=== PATIENT | male | born 1950 | race Caucasian/White ===

== ENCOUNTER 2016-03-13 07:24 | Outpatient (CLI) | payer OTHER ==
--- NOTE | 2016-03-13 08:24 | DIAGNOSTIC IMAGING REPORT ---
PROCEDURE: CT ABDOMEN/PELVIS W/O CONTRAST INDICATION: Left upper and left lower quadrant pain x 2 months, initial encounter TECHNIQUE: Noncontrast axial images were obtained of the entire abdomen and pelvis with sagittal and coronal reformations. COMPARISON: None. FINDINGS: ABDOMEN: Lung base are clear. Heart size is normal. Hepatic steatosis. Gallbladder, pancreas, spleen, adrenal glands and right kidney are normal. 3.2 cm left renal cyst. No renal calculi or hydronephrosis pill Mild atherosclerosis of the aorta. Stool throughout the large bowel. PELVIS: Normal appendix. Moderate sigmoid diverticulosis but no inflammatory changes or free fluid. Normal prostate and bladder. Old right rib fracture. Moderate degenerative changes of the spine. IMPRESSION: 1. Hepatic steatosis 2. 3.2 cm left renal cyst 3. Obstipation 4. Moderate sigmoid diverticulosis All CT scans at this facility use dose modulation, iterative reconstruction, and/or weight-based dosing when appropriate to reduce radiation dose to as low as reasonably achievable.
[2016-03-29] MEDS ORDERED: ACETAMINOPHEN500 MG PO (17:37)
== END 2016-03-13 23:00 ==
LOC: CT SRH 07:24
DX: R10.12 Left upper quadrant pain (principal); K76.0 Fatty (change of) liver, not elsewhere classified; N28.1 Cyst of kidney, acquired; K59.00 Constipation, unspecified; K57.30 Diverticulosis of large intestine without perforation or abscess without bleeding